=== PATIENT | male | born 1940 | race Caucasian/White ===

== ENCOUNTER → 2016-12-13 | Outpatient (CLI) | payer MEDICARE, OTHER ==
[2015-08-21 19:57] VITALS: BP 165/77
--- NOTE | 2016-12-13 13:53 | KCIC ---
Ultrasound venous left lower extremity 12/13/2016 CLINICAL INDICATION: Left leg pain. COMPARISON: None. FINDINGS: Grayscale, color and spectral waveform analysis of the left lower extremity were obtained. Left common femoral, deep femoral, femoral and popliteal veins are patent with normal color Doppler imaging. Limited calf pain survey is unremarkable. There is moderate focal calcified plaque the visualized left common femoral artery. IMPRESSION: 1. No evidence of acute DVT in the left lower extremity. 2. Focal, calcified plaque in the visualized left common femoral artery. Electronically signed by: Hood Barkley MD (12/13/2016 1:50 PM) [id number]
== END | disposition home or self-care (01) ==
LOC: KCIC US 12:18
PROVIDERS: ATTEND Nurse Practitioner Family
DX: M79.605 Pain in left leg (principal); I70.8 Atherosclerosis of other arteries
CPT/HCPCS: 93971